=== PATIENT | female | born 1975 | race Caucasian/White ===

== ENCOUNTER 2017-10-24 19:16 | Emergency (ER) | payer BC, OTHER ==
[~2017-10-24] VITALS: Ht 180.3 cm; Wt 143.8 kg
[~2017-10-24 19:16] MED LIST: ESCI10TA17 PO; LEVO200T6 PO; LEVO50TA6 PO; SULF800T23 PO
[2017-10-24 19:22] VITALS: TEMP 36.6; Ht 180.3 cm; Wt 143.8 kg
[2017-10-24] MEDS ORDERED: IBUPROFEN 600 MG TAB PO STA (19:32)
[2017-10-24] MEDS ORDERED: DIPHTHERIA/TETANUS/PERTUSSIS 0.5 ML SYR/VIAL IM. ONE (19:45)
--- NOTE | 2017-10-24 19:59 | DIAGNOSTIC IMAGING REPORT ---
L FOOT MIN 3 VIEWS ROUTINE CLINICAL HISTORY: 42 years-old Female presenting with Fall, Left anterior ankle and foot pain . TECHNIQUE: Frontal, oblique, and lateral views of the left foot were obtained. COMPARISON: None. FINDINGS: Prominent enthesophyte at the origin of the plantar fascia. Mild diffuse soft tissue swelling suggested. No acute fracture or malalignment. No advanced degenerative change. IMPRESSION: No acute osseous injury. Electronically signed by: Lele Bacon M.D. 10/24/2017 7:58 PM Dictated Date/Time: 10/24/2017 7:57 PM
--- NOTE | 2017-10-24 20:00 | DIAGNOSTIC IMAGING REPORT ---
L ANKLE MIN 3 VIEWS ROUTINE CLINICAL HISTORY: 42 years-old Female presenting with Fall, Left anterior ankle and foot pain . TECHNIQUE: Frontal, mortise, and lateral views of the left ankle were obtained. COMPARISON: None. FINDINGS: Ankle mortise congruent. No acute fracture or malalignment. Prominent enthesophyte at the origin of plantar fascia. Diffuse soft tissue swelling. IMPRESSION: 1. No acute osseous injury. 2. Nonspecific diffuse soft tissue swelling. Electronically signed by: Lele Bacon M.D. 10/24/2017 7:59 PM Dictated Date/Time: 10/24/2017 7:58 PM
[2017-10-24] MEDS ORDERED: ACET-1256 PO (20:09)
--- NOTE | 2017-10-24 20:28 | EMERGENCY ROOM VISIT NOTE ---
History First contact with patient: 19:25 Chief Complaint: ANKLE PAIN Stated Complaint: MAYBE BROKEN LEFT ANKLE History of Present Illness The patient is a 42 year old female who presents to the Emergency Room via private vehicle with complaints of "maybe broken left ankle". The patient states that earlier today she was helping her grandfather at the [facility]. She notes that she was sitting in his wheelchair, and went to stand up and her left foot became caught and she fell injuring her left foot and ankle. She notes some cuts to the left anterior leg. She notes that her tetanus will be due next month. She notes it is been nearly 10 years. She rates the overall pain in the left anterior ankle is a 7/10. She points to that location as the area of pain. Review of Systems A complete 6-point Review of Systems was discussed with the patient, with pertinent positives and negatives listed in the History of Present Illness. All remaining Review of Systems questions can be considered negative unless otherwise specified. Past Medical/Surgical History No pertinent. Family History No pertinent. Social History Smoking Status: Current Every Day Smoker Patient lives locally and is currently staying at the [facility]. Current/Historical Medications Scheduled Acetaminophen (Tylenol), 1,000 MG PO prn ud Escitalopram (Lexapro), 10 MG PO DAILY Levothyroxine Sodium (Levothyroxine Sodium), 50 MCG PO DAILY Levothyroxine Sodium (Levothyroxine Sodium), 200 MCG PO DAILY Physical Exam Vital Signs Date Time Temp Pulse Resp B/P (MAP) Pulse Ox O2 Delivery O2 Flow Rate FiO2 10/24/17 20:56 83 16 128/84 99 Room Air 10/24/17 19:22 36.6 111 20 163/77 97 Room Air Physical Exam VITAL SIGNS - Vital signs and nursing notes were reviewed. Stable. Afebrile. GENERAL -42-year-old female appearing her stated age who is in no acute distress. Communicates well with provider and answers questions appropriately. SKIN -abrasions noted to the left anterior inferior ankle region. Small abrasion noted to the left anterior knee region. HEAD - NC/AT. EXTREMITIES - No clubbing or peripheral cyanosis. No pretibial edema present. There is an abrasion noted to the left anterior inferior knee joint/proximal tibia. This is superficial. No active bleeding. There is also an abrasion noted on the mid left lateral calf extending down to the ankle. Small abrasion noted throughout this region as well as a deeper abrasion to the proximal lateral foot. It will not require repair. No active bleeding. No bony deformity. There is tenderness to palpation overlying the patient's left anterior ankle joint. No proximal or distal tenderness. No knee tenderness. No distal foot tenderness. She moves the toes well. She is neurovascularly intact distally. Medical Decision & Procedures ER Provider Diagnostic Interpretation: L ANKLE MIN 3 VIEWS ROUTINE CLINICAL HISTORY: 42 years-old Female presenting with Fall, Left anterior ankle and foot pain . TECHNIQUE: Frontal, mortise, and lateral views of the left ankle were obtained. COMPARISON: None. FINDINGS: Ankle mortise congruent. No acute fracture or malalignment. Prominent enthesophyte at the origin of plantar fascia. Diffuse soft tissue swelling. IMPRESSION: 1. No acute osseous injury. 2. Nonspecific diffuse soft tissue swelling. Electronically signed by: Lele Bacon M.D. 10/24/2017 7:59 PM Dictated Date/Time: 10/24/2017 7:58 PM L FOOT MIN 3 VIEWS ROUTINE CLINICAL HISTORY: 42 years-old Female presenting with Fall, Left anterior ankle and foot pain . TECHNIQUE: Frontal, oblique, and lateral views of the left foot were obtained. COMPARISON: None. FINDINGS: Prominent enthesophyte at the origin of the plantar fascia. Mild diffuse soft tissue swelling suggested. No acute fracture or malalignment. No advanced degenerative change. IMPRESSION: No acute osseous injury. Electronically signed by: Lele Bacon M.D. 10/24/2017 7:58 PM Dictated Date/Time: 10/24/2017 7:57 PM Medications Administered Medications (Trade) Dose Ordered Sig/Grabiel Route Start Time Stop Time Status Last Admin Dose Admin Ibuprofen (Motrin Tab) 600 mg NOW STAT PO 10/24/17 19:32 10/24/17 19:34 DC 10/24/17 19:49 600 MG Diphtheria/ Pertussis/Tetanus Vacc (Adacel Inj) 0.5 ml ONCE ONCE IM. 10/24/17 19:45 10/24/17 19:46 DC 10/24/17 19:50 0.5 ML Medical Decision Patient was seen and evaluated as above in room D7. Review was performed of nursing notes and vital signs. After obtaining a thorough history and physical examination the above work up was performed. She presents to us today with left ankle pain. She is nontoxic on exam. X-rays were obtained of the ankle and foot. She was given ibuprofen for pain. Ice packs applied. No acute fracture noted. I suspect sprain. Regions were cleansed and dressed with bacitracin dressing. She is to return with worsening. She is to follow with orthopedics this coming week if pain persists. Tetanus immunization updated. She was educated upon risk of occult fracture. The patient was educated upon management, educated upon todays findings/results, educated upon symptoms in which to return, had questions answered prior to discharge, and was discharged home in good condition. In the evaluation and treatment of this patient, the following differential diagnoses were considered: Ankle Fracture, Ankle Sprain, Distal Fibula Fracture , Distal Tibia Fracture, Foot Fracture, Maisonneuve Fracture. Impression Primary Impression: Left ankle pain Departure Information Dispostion Home / Self-Care Condition GOOD Referrals Won Wyatt M.D. (PCP) Alden Mejia MD Patient Instructions My [facility] Additional Instructions You have been treated in the Emergency Department for a left ankle/foot injury. For pain control, you can use the following [id number] medicines (if >12 yo): - Regular strength (325mg/tab) Tylenol (acetaminophen) 2 tabs every 4-6 hours as needed. Do not exceed 12 tablets in a 24 hour period. Avoid taking more than 3 grams (3000 mg) of Tylenol per day. This includes any other sources of acetaminophen you may take on a regular basis. - Regular strength (200 mg/tab) Advil (ibuprofen) 1-2 tabs every 4-6 hours as needed. Do not exceed a dose of 3200 mg per day. If this is a recent injury (<24 hrs), ice can be applied to the area of pain for the first 3 days to help decrease pain and inflammation. Please call your established orthopedic surgeon in 5-7 days if your pain persists or the one that I have listed. Keep the ankle brace/splint in place until cleared by Orthopedics. Use the crutches you have been provided to keep ALL weight off of the ankle until weight bearing is tolerable. Return to the Emergency Department if your current symptoms worsen despite treatment course outlined above, or if you develop any of the following symptoms : intractable pain despite aforementioned treatment course or new onset of numbness or tingling of the foot.
[2017-10-24 20:56] VITALS: BP 128/84; PULSE 83; O2SAT 99
== END 2017-10-24 21:06 | disposition home or self-care (01) ==
LOC: C.EDB 19:17 → C.EDD 21:06
DX: S90.512A Abrasion, left ankle, initial encounter (principal); S80.812A Abrasion, left lower leg, initial encounter; W05.0XXA Fall from non-moving wheelchair, initial encounter; Y92.89 Other specified places as the place of occurrence of the external cause; Y93.89 Activity, other specified; F17.210 Nicotine dependence, cigarettes, uncomplicated; Z79.899 Other long term (current) drug therapy; Z23 Encounter for immunization